=== PATIENT | female | born 1930 | race Caucasian/White ===

== ENCOUNTER 2016-07-30 17:35 | Inpatient (IN) | payer MEDICARE, OTHER ==
[~2016-07-30] VITALS: Ht 160 cm; Wt 50.8 kg
[2016-07-30 19:10] LABS: HEMOGLOBIN 13.4 gm/dl (12.3-15.3); RED BLOOD COUNT 4.31 M/UL (4.00-5.10)
[2016-07-31 07:54] LABS: HEMOGLOBIN 13.4 gm/dl (12.3-15.3); RED BLOOD COUNT 4.36 M/UL (4.00-5.10); WHITE BLOOD COUNT 4.3 K/UL (4.5-11.0)
[2016-07-31] MEDS ORDERED: BUSPAR 5MG TABLE5 MG PO (12:57)
[2016-07-31] MEDS ORDERED: ELIQUIS2.5 MG PO (12:58)
[2016-07-31] MEDS ORDERED: MOBIC7.5 MG PO (12:58)
[2016-07-31] MEDS ORDERED: VENTOLIN HFA 66.7 GM INH (12:58)
[2016-07-31] MEDS ORDERED: PROTONIX40 MG PO (12:59)
[2016-07-31] MEDS ORDERED: CARDIZEM CD120 MG PO (12:59)
[2016-07-31] MEDS ORDERED: NEURONTIN 300300 MG PO (12:59)
[2016-07-31] MEDS ORDERED: POTASSIUM CHLO10 MEQ PO (13:00)
[2016-07-31] MEDS ORDERED: LANOXIN125 MCG PO (13:00)
[2016-07-31] MEDS ORDERED: LASIX40 MG PO (13:00)
[2016-07-31] MEDS ORDERED: VITAMIN D2000 UNI1 PO (13:01)
[2016-07-31] MEDS ORDERED: TESSALON PERLE100 MG PO (13:01)
[2016-07-31] MEDS ORDERED: VITAMIN B-12100 MC1 PO (13:02)
[2016-07-31] MEDS ORDERED: ULTRAM50 MG PO (13:02)
[2016-08-01 04:58] LABS: HEMOGLOBIN 11.7 gm/dl (12.3-15.3)
[2016-08-01 04:59] LABS: RED BLOOD COUNT 3.78 M/UL (4.00-5.10); WHITE BLOOD COUNT 9.6 K/UL (4.5-11.0)
[2016-08-04] MEDS ORDERED: MEDROL DOSEPAK 24 MG PO (16:17)
[2016-08-04] MEDS ORDERED: CEFUROXIME500 MG PO (16:19)
[2016-08-04] MEDS ORDERED: SPIRIVA18 MCG INH (16:19)
[2016-08-04] MEDS ORDERED: DULERA 200 MCG8.8 GM INH (16:21)
== END 2016-08-04 17:58 | disposition home health service (06) | DRG 308 ==
LOC: ER1 17:35 → ZEROF 07-31 01:49 → PROG CARE 07-31 15:46 → MED SURG 4 08-01 20:17
PROVIDERS: Family Medicine; Physician Assistant; ADMIT Internal Medicine
DX: I48.2 Chronic atrial fibrillation (principal); J96.21 Acute and chronic respiratory failure with hypoxia; I50.33 Acute on chronic diastolic (congestive) heart failure; N17.9 Acute kidney failure, unspecified; J44.0 Chronic obstructive pulmonary disease with (acute) lower respiratory infection; J44.1 Chronic obstructive pulmonary disease with (acute) exacerbation; I42.0 Dilated cardiomyopathy; N18.3 Chronic kidney disease, stage 3 (moderate); I27.2 Other secondary pulmonary hypertension; E86.0 Dehydration; J20.9 Acute bronchitis, unspecified; K21.9 Gastro-esophageal reflux disease without esophagitis; G62.9 Polyneuropathy, unspecified; M19.90 Unspecified osteoarthritis, unspecified site; G89.29 Other chronic pain; F32.9 Major depressive disorder, single episode, unspecified; F41.9 Anxiety disorder, unspecified; Z86.73 Personal history of transient ischemic attack (TIA), and cerebral infarction without residual deficits; Z87.891 Personal history of nicotine dependence; Z85.51 Personal history of malignant neoplasm of bladder; Z79.01 Long term (current) use of anticoagulants; Z79.1 Long term (current) use of non-steroidal anti-inflammatories (NSAID); Z99.81 Dependence on supplemental oxygen; Z79.899 Other long term (current) drug therapy; Z90.710 Acquired absence of both cervix and uterus; Z90.49 Acquired absence of other specified parts of digestive tract; Z98.890 Other specified postprocedural states
CPT/HCPCS: ECHO; 36415; 36600; 71020; 80048; 80053; 80162; 81001; 82550; 82553; 82803; 83735; 83874; 83880; 84439; 84443; 84484; 85025; 85027; 87040; 87070; 87081; 87086; 87205; 87880; 93005; 93306; 94640; 94664; 96365; 96375; 97110; 97116; 97530; 99291; J0696; J2405; J2920; J2930; J7030; J7050; J7509

== ENCOUNTER → 2016-08-28 | Outpatient (CLI) | payer MEDICARE, OTHER ==
[~2016-08-28] MED LIST: BUSPAR 5MG TABLE5 MG PO; CARDIZEM CD120 MG PO; CEFUROXIME500 MG PO; DULERA 200 MCG8.8 GM INH; ELIQUIS2.5 MG PO; LANOXIN125 MCG PO; LASIX40 MG PO; MEDROL DOSEPAK 24 MG PO; MOBIC7.5 MG PO; NEURONTIN 300300 MG PO; POTASSIUM CHLO10 MEQ PO; PROTONIX40 MG PO; SPIRIVA18 MCG INH; TESSALON PERLE100 MG PO; ULTRAM50 MG PO; VENTOLIN HFA 66.7 GM INH; VITAMIN B-12100 MC1 PO; VITAMIN D2000 UNI1 PO
[2016-08-28 11:08] LABS: RED BLOOD COUNT 4.54 M/UL (4.00-5.10)
== END ==
LOC: HH 10:29
PROVIDERS: Internal Medicine
DX: I48.2 Chronic atrial fibrillation (principal); J44.1 Chronic obstructive pulmonary disease with (acute) exacerbation; I50.32 Chronic diastolic (congestive) heart failure; M62.81 Muscle weakness (generalized)
CPT/HCPCS: 80053; 80162; 85025